=== PATIENT | female | born 1995 | race Two or more races ===

== ENCOUNTER 2024-08-13 18:25 | Emergency (ER) | payer OTHER ==
[~2024-08-13] VITALS: Ht 152.4 cm; Wt 59.0 kg
[2024-08-13] MEDS ORDERED: LEXAPRO20 MG (19:30)
[2024-08-13] MEDS ORDERED: MOUNJARO2.5 MG/0.5 (19:32)
[2024-08-13] MEDS ORDERED: ONDANSETRON HCL 2 MG/ML VIAL IV ONE (20:00)
[2024-08-13] MEDS ORDERED: 0.9 % SODIUM CHLORIDE 1,000 ML IV ONE (20:00)
[2024-08-13] MEDS ORDERED: FAMOtidine 10 MG/ML (4ML VIAL) IV ONE (20:00)
[2024-08-13] MEDS ORDERED: ONDANSETRON HCL 2 MG/ML VIAL ONE (21:52)
[2024-08-13] MEDS ORDERED: FAMOTIDINE/PF 20 MG/2 ML VIAL ONE (21:53)
[2024-08-13 23:18] LABS: BASO % 0.5 % (0.1-1.2); EOS # 0.01 (0.04-0.54); EOS % 0.1 % (0.7-7.0); HEMATOCRIT 44.3 % (34.1-44.9); HEMOGLOBIN 14.7 g/dL (11.2-15.7); LYMPH # 1.18 (1.18-3.74); LYMPH % 14.6 % (19.3-53.1); MEAN CORPUSCULAR HEMOGLOBIN 29.8 pg (25.6-32.2); MONO # 0.18 (0.24-0.82); MONO % 2.2 % (4.7-12.5); NEUT # 6.67 (1.56-6.13); NEUT % 82.5 % (34.0-71.1); PLATELET COUNT 303 K/uL (163-369); RED BLOOD COUNT 4.93 M/uL (3.93-5.22); RED CELL DISTRIBUTION WIDTH 12.5 % (11.6-14.4)
[2024-08-13] MEDS ORDERED: PEPCID AC20 MG PO (23:58)
[2024-08-13] MEDS ORDERED: ZOFRAN8 MG PO (23:58)
== END 2024-08-14 00:33 | disposition home or self-care (01) ==
LOC: ER 18:38
PROVIDERS: General Practice
DX: R11.0 Nausea (principal)